=== PATIENT | male | born 1955 | race African-American/Black ===

== ENCOUNTER → 2019-01-23 | Outpatient (CLI) | payer MEDICARE ==
[~2019-01-23] MED LIST: ASPIRIN E.C. 8181 MG PO; AUGMENTIN 875 M1 TAB PO; CELEXA 20MG20 MG/TAB PO; DAZIDOX10 MG PO; HCTZ 25MG25 MG PO; KLONOPIN 1MG1 MG PO; LISINOPRIL20 MG PO; METAMUCIL1.7 G1 PO; PREDNISONE20 MG PO; PRINZIDE 12.5 M1 TA1 PO; SEA OMEGA 301 SGL PO; TUSS PO
== END ==
LOC: MC.RAD 09:13
DX: N63.20 Unspecified lump in the left breast, unspecified quadrant (principal)

== ENCOUNTER 2022-01-20 14:11 | Emergency (ER) | payer OTHER, MEDICARE ==
[~2022-01-20] VITALS: Ht 170.2 cm; Wt 90.9 kg
[2022-01-20 14:14] VITALS: TEMP 98.2
[2022-01-20] MEDS ORDERED: NORVASC2.5 MG PO (14:21)
[2022-01-20 14:44] LABS: BASO % 0.1 % (0.0-2.0); EOS % 0.5 % (0.0-4.0); GRAN # 4.6 K/mm3 (1.4-6.5); GRAN % 62.7 % (42.2-75.2); HEMATOCRIT 25.9 % (42.0-52.0); HEMOGLOBIN 8.4 g/dl (13.5-18.0); LYMPH # 2.2 K/mm3 (1.2-3.4); MEAN CELL VOLUME 99 fl (80.0-100.0); MEAN CORPUSCULAR HEMOGLOBIN 32 pg (27-31); MEAN CORPUSCULAR HGB CONC 32 g/dl (33.0-37.0); MEAN PLATELET VOLUME 9.4 fl (7.4-10.4); MONO # 0.5 K/mm3 (0.1-0.6); MONO % 6.3 % (1.7-9.3); PLATELET COUNT 194 K/mm3 (130-400); RED BLOOD COUNT 2.61 M/mm3 (4.20-5.60); REDCELL DISTRIBUTION WIDTH-CV 13.6 % (11.5-14.5)
[2022-01-20 14:47] LABS: INR 1.2 (0.8-3.0); PROTHROMBIN TIME 13.8 SECONDS (9.7-12.8)
[2022-01-20 14:49] LABS: PARTIAL THROMBOPLASTIN TIME 31.8 SECONDS (26.0-37.0)
[2022-01-20 15:13] LABS: ALANINE AMINOTRANSFERASE 26 U/L (0-55); ALBUMIN 2.1 gm/dL (3.4-4.8); ALCOHOL(ethanol),MEDICAL < 10 mg/dL (0-10); ALKALINE PHOSPHATASE 73 U/L (40-150); ANION GAP 6 mmol/L (7-16); AST,SGOT 21 U/L (5-34); BILIRUBIN,TOTAL 0.1 mg/dL (0.2-1.2); BLOOD UREA NITROGEN 22 mg/dL (8-26); CHLORIDE 125 mmol/L (98-107); CREATININE, serum 0.78 mg/dL (0.72-1.25); GLUCOSE 78 mg/dL (70-99); SODIUM 145 mmol/L (136-145); TOTAL PROTEIN 3.9 gm/dL (6.2-8.1)
[2022-01-20 15:15] LABS: CALCIUM 5.2 mg/dL (8.4-10.2); CARBON DIOXIDE 14 mmol/L (23-31); POTASSIUM 2.3 mmol/L (3.5-4.5)
[2022-01-20 16:32] VITALS: BP 145/85; PULSE 59
== END 2022-01-20 16:40 ==
LOC: COL.ER 14:11
PROVIDERS: Emergency Medicine
DX: S12.000A Unspecified displaced fracture of first cervical vertebra, initial encounter for closed fracture (principal); S01.111A Laceration without foreign body of right eyelid and periocular area, initial encounter; S63.075A Dislocation of distal end of left ulna, initial encounter; S63.005A Unspecified dislocation of left wrist and hand, initial encounter; E87.6 Hypokalemia; S50.812A Abrasion of left forearm, initial encounter; S50.811A Abrasion of right forearm, initial encounter; S80.212A Abrasion, left knee, initial encounter; S80.211A Abrasion, right knee, initial encounter; F17.210 Nicotine dependence, cigarettes, uncomplicated; V89.2XXA Person injured in unspecified motor-vehicle accident, traffic, initial encounter; Y92.410 Unspecified street and highway as the place of occurrence of the external cause
CPT/HCPCS: J0610; J3010; J3480; Q9967